=== PATIENT | male | born 1995 | race Asian ===

== ENCOUNTER 2021-07-13 16:14 | Emergency (ER) | payer BC, OTHER ==
[~2021-07-13] VITALS: Ht 180.3 cm; Wt 94.8 kg
[2021-07-13 16:21] VITALS: BP 142/79
--- NOTE | 2021-07-13 16:22 | NUR ---
PT SENT TO LOBBY TO WAIT FOR AVAILABLE BED.
[2021-07-13] MEDS ORDERED: LACTATED RINGERS 500 ML IV ONE ×2 (18:05→19:05)
--- NOTE | 2021-07-13 18:05 | NUR ---
Patient ambulated to bed 04 with steady/even gait.
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
--- NOTE | 2021-07-13 18:10 | NUR ---
EMT at bedside For EKG
--- NOTE | 2021-07-13 18:20 | NUR ---
Patient refusing TDAP vaccine at this time. 2nd RN witnessed
--- NOTE | 2021-07-13 18:23 | NUR ---
Dr. Lai is evaluating patient at bedside.
--- NOTE | 2021-07-13 18:34 | NUR ---
Blood sample handed to CPT Evelyn at ER bedside.
[2021-07-13 18:49] LABS: BASOPHILS # (AUTO) 0.2 K/uL (0.00-0.22); EOSINOPHILS # (AUTO) 0.2 K/uL (0-0.4); EOSINOPHILS % (AUTO) 3.2 % (0.0-4.0); HEMATOCRIT 46.6 % (36-52); HEMOGLOBIN 16.2 g/dL (12.0-18.0); LYMPHOCYTES # (AUTO) 1.3 K/uL (2.0-11.5); LYMPHOCYTES % (AUTO) 21.6 % (20.5-51.1); MEAN CORPUSCULAR HEMOGLOBIN 31 pg (27-31); MEAN CORPUSCULAR HGB CONC 35 g/dL (33-37); MEAN CORPUSCULAR VOLUME 89.7 fL (80-94); MONOCYTES # (AUTO) 0.3 K/uL (0.8-1.0); MONOCYTES % (AUTO) 4.7 % (1.7-9.3); NEUTROPHILS % (AUTO) 67.5 % (42.2-75.2); PLATELET COUNT (AUTO) 231 K/uL (140-450); RED CELL DISTRIBUTION WIDTH 12.3 % (11.6-13.7); WHITE BLOOD COUNT (AUTO) 5.9 K/uL (4.8-10.8)
--- NOTE | 2021-07-13 18:55 | NUR ---
TDAP consent form signed.
--- NOTE | 2021-07-13 19:09 | NUR ---
Transfer consent form signed.
[2021-07-13 19:15] LABS: ALBUMIN 4.5 g/dL (3.4-5.0); ANION GAP 11.9 (8-16); CARBON DIOXIDE 29.2 mmol/L (21-32); CREATININE 0.9 mg/dL (0.6-1.3); PHOSPHORUS 3.8 mg/dL (2.5-4.9); POTASSIUM 4.1 mmol/L (3.5-5.1); TOTAL BILIRUBIN 0.3 mg/dL (0.0-1.0)
[2021-07-13 19:18] LABS: APPEARANCE,URINE CLEAR (CLEAR); BILIRUBIN,URINE NEGATIVE (NEGATIVE); BLOOD, URINE NEGATIVE (NEGATIVE); COLOR,URINE YELLOW (YELLOW); LEUKOCYTE ESTERASE ,URINE NEGATIVE (NEGATIVE); NITRITE, URINE NEGATIVE (NEGATIVE); PH,URINE 6.5 (5.0-9.0); UGLUCOSE NEGATIVE (NEGATIVE)
--- NOTE | 2021-07-13 19:27 | NUR ---
Report given to Kalyani Dunham RN at [facility]. All questions answered. Advised [facility] at bedside with ETA 30min.
[2021-07-13 19:30] VITALS: BP 147/73
--- NOTE | 2021-07-13 19:30 | NUR ---
Patient to be transferred to [facility]. Is being transferred due to higher level of care. Receiving facility has accepting physician and available space. ER physician has signed transfer form. Patient or responsible libertarian has agreed to transfer and signed form. Patient belongings inventoried and will be sent with patient. Copy of nursing notes, lab reports, EKG, Physicians Orders and X-rays to be sent with patient. Report called to EFRA Dunham at receiving facility. [facility] ambulance service has been called for transfer. ETA is 1920.
== END 2021-07-13 19:30 | disposition short-term general hospital (02) ==
LOC: MED 16:14
DX: T23.341A Burn of third degree of multiple right fingers (nail), including thumb, initial encounter (principal); T79.8XXA Other early complications of trauma, initial encounter; W86.8XXA Exposure to other electric current, initial encounter; Y93.89 Activity, other specified; Y92.89 Other specified places as the place of occurrence of the external cause; Y99.8 Other external cause status
CPT/HCPCS: 36415; 80053; 81003; 82553; 83735; 84100; 84484; 85025; 90471; 90715; 93005; 96360; 96372; 99291